=== PATIENT | female | born 1955 | race Caucasian/White ===

== ENCOUNTER 2023-01-06 07:20 | Day surgery (SDC) | payer MEDICARE, BC ==
[~2023-01-06 07:20] MED LIST: Lactated Ringers 1,000 ML IV SCH; Lidocaine 1%/Sod Bicarbonate in NS 8.4% 1 ML Syringe IDERM PRN; Sodium Chloride 0.9% 10 ML Syringe FLUSH PRN; Sodium Chloride 0.9% 10 ML Syringe FLUSH SCH
[2023-01-06] MEDS ORDERED: Midazolam 1 MG/ML 2 ML SDV ONE (07:58)
[2023-01-06] MEDS ORDERED: Propofol 200 MG/20 ML SDV ONE (07:58)
[2023-01-06] MEDS ORDERED: fentaNYL 100 MCG/2 ML SDV ONE (07:58)
[2023-01-06] MEDS ORDERED: Lidocaine 1% 4 ML ONE (07:59)
[2023-01-06 10:15] VITALS: BP 99/70; PULSE 58
== END 2023-01-06 09:45 | disposition home or self-care (01) ==
LOC: JD.SDS 07:20
PROVIDERS: ATTEND Surgery
DX: K29.50 Unspecified chronic gastritis without bleeding (principal); K44.9 Diaphragmatic hernia without obstruction or gangrene; F41.9 Anxiety disorder, unspecified; R74.8 Abnormal levels of other serum enzymes; E34.9 Endocrine disorder, unspecified; K21.9 Gastro-esophageal reflux disease without esophagitis; I10 Essential (primary) hypertension; G43.909 Migraine, unspecified, not intractable, without status migrainosus; E55.9 Vitamin D deficiency, unspecified; G47.33 Obstructive sleep apnea (adult) (pediatric); R63.5 Abnormal weight gain; N39.0 Urinary tract infection, site not specified; M79.10 Myalgia, unspecified site; E78.00 Pure hypercholesterolemia, unspecified; R91.8 Other nonspecific abnormal finding of lung field; Z79.899 Other long term (current) drug therapy; Z98.890 Other specified postprocedural states; Z91.041 Radiographic dye allergy status; Z88.8 Allergy status to other drugs, medicaments and biological substances; Z68.29 Body mass index [BMI] 29.0-29.9, adult
CPT/HCPCS: 43239; J2250; J2704; J3010; J7120; 00731; J3490